=== PATIENT | male | born 1960 | race Caucasian/White ===

== ENCOUNTER 2017-07-28 20:18 | Emergency (ER) | payer OTHER ==
--- NOTE | 2017-07-28 21:09 | EDPHY ---
H & P Stated Complaint: R PINKY INJ, DEFORM/SOFTBALL Time Seen by Provider: 07/28/17 20:56 HPI/ROS: Chief Complaint: Right 5th phalanx dislocation HPI: The patient presents to the ED with a dislocation of his right 5th proximal phalanx after he was struck by a softball. He presents to the ED with an obvious dorsal dislocation of the proximal phalanx. He has no additional acute complaints. REVIEW OF SYSTEMS: Neuro: no headache, numbness, weakness Musculoskeletal: as above Skin: no abrasion or lacerations Source: Patient Exam Limitations: No limitations - Personal History Current Tetanus Diphtheria and Acellular Pertussis (TDAP): Yes - Medical/Surgical History Hx Asthma: No Hx Chronic Respiratory Disease: No Hx Diabetes: No Hx Cardiac Disease: No Hx Renal Disease: No Hx Cirrhosis: No Hx Alcoholism: No Hx HIV/AIDS: No Hx Splenectomy or Spleen Trauma: No Other PMH: ACL REPAIR - Social History Smoking Status: Never smoked - Physical Exam Exam: General: No acute distress Right hand: Obvious dislocation of the proximal phalanx relative to the MCP joint. Neuro: Sensation intact to light touch Vascular: Normal capillary refill Constitutional: Initial Vital Signs Temperature (C) 36.9 C 07/28/17 20:35 Heart Rate 78 07/28/17 20:35 Respiratory Rate 16 07/28/17 20:35 Blood Pressure 130/77 H 07/28/17 20:35 O2 Sat (%) 97 07/28/17 20:35 O2 Delivery Mode Room Air Allergies/Adverse Reactions: No Known Allergies Allergy (Unverified 07/28/17 20:33) Home Medications: Medication Instructions Recorded Depakote 07/28/17 Levothyroxine 07/28/17 Medical Decision Making - Diagnostics Imaging Results: Imaging Impressions Finger X-Ray 07/28/17 20:54 Impression: Smooth ossification dorsal to the DIP joint more suggestive of a chronic injury. No definite acute fracture. Procedures: Procedure: Dislocation reduction. Indication: Finger dislocation The 5th finger was reduced in the usual fashion without complications. Post reduction the patient's neurovascular exam is normal. Post reduction x-ray demonstrates reduction of the joint to the anatomic position. The procedure was performed by myself. ED Course/Re-evaluation: The patient's finger was easily reduced by myself. Post reduction x-ray demonstrates no evidence of an obvious fracture component. The patient will be discharged home with customary aftercare instructions and return precautions. Departure - Departure Disposition: Home, Routine, Self-Care Clinical Impression: Finger dislocation Qualifiers: Encounter type: initial encounter Qualified Code(s): S63.259A - Unspecified dislocation of unspecified finger, initial encounter Condition: Good Instructions: Finger Dislocation (ED) Additional Instructions: 1. Take Ibuprofen or Motrin 600 mg by mouth three times a day. 2. Ice as needed for pain 3. Follow up with a hand surgeon, Dr. Enrique Nayak, you have been referred to for any persistent pain, instability or other concerns. Referrals: Enrique Nayak MD [Medical Doctor] - As per Instructions
[2017-07-28 21:44] VITALS: BP 126/68
== END 2017-07-28 21:42 | disposition home or self-care (01) ==
PROC: 0RSXXZZ Reposition Left Finger Phalangeal Joint, External Approach (ICD-10-PCS; principal; 2017-07-28)
DX: S63.287A Dislocation of proximal interphalangeal joint of left little finger, initial encounter (principal); W21.07XA Struck by softball, initial encounter